=== PATIENT | male | born 1995 | race Caucasian/White ===

== ENCOUNTER 2023-04-07 21:50 | Emergency (ER) | payer SELFPAY ==
[2023-04-07 21:56] VITALS: BP 115/74; PULSE 82; RESP 16; TEMP 36.8; O2SAT 97; BMI 21.7
== END 2023-04-07 23:50 | disposition left against medical advice (07) ==
PROVIDERS: Emergency Provider Emergency Medicine
CPT/HCPCS: 99281

== ENCOUNTER 2023-05-23 20:43 | Emergency (ER) | payer SELFPAY ==
[2023-05-23 20:47] VITALS: BP 118/72; PULSE 57; RESP 16; TEMP 36.6; O2SAT 97; BMI 19.6
--- NOTE | 2023-05-23 20:57 | ED.DENTAL ---
HPI - Dental/Oral General Chief complaint: Dental/Oral Stated complaint: Tooth trouble Time Seen by Provider: 05/23/23 20:52 Source: patient Mode of arrival: Ambulatory History of Present Illness HPI Narrative: 27-year-old male daily smoker presents with a chief complaint of dental pain in the right lower molar. He states he broke his tooth about 1 month ago in has had increasing pain. He denies any facial swelling but does state that a day or 2 ago he had some adjacent gum swelling and when he firmly pressed it he was able to express yellowish, foul-smelling bitter tasting liquid. He denies fever chills nor any trouble swallowing. He has been using Orajel with minimal relief. He is approached a few local dentist but they do not accept his insurance Related Data Previous Rx's Medication Instructions Recorded ketorolac 10 mg tablet 10 mg PO Q6H PRN pain #14 tabs 05/23/23 penicillin V potassium 500 mg 500 mg PO Q6H 10 days #40 tabs 05/23/23 tablet Allergies Allergy/AdvReac Type Severity Reaction Status Date / Time No Known Drug Allergies Allergy Verified 05/23/23 21:06 Review of Systems Review of Systems Narrative: GENERAL: Denies chills, fatigue, malaise, fever, sweats. HEENT: See HPI RESPIRATORY: Denies dyspnea, cough, wheezing, hemoptysis, sputum. CARDIOVASCULAR: Denies chest pain, palpitations, orthopnea, edema, GASTROINTESTINAL: Denies nausea, vomiting, abdominal pain, diarrhea, constipation, melena. : Denies dysuria, frequency, incontinence, hematuria, urinary retention. MUSCULOSKELETAL: denies weakness, joint pain, or bony pain SKIN: Denies rash, skin lesions, or other NEUROLOGIC: Denies weakness, headache, numbness, change in speech, confusion, seizures, incoordination. PSYCHIATRIC: No concerning psychosocial issues. 12 point review of systems is negative except for those stated above Patient History Social History Smoking Status: Current every day smoker Smoking Status: Current every day smoker tobacco type: cigarettes and e-cigarettes alcohol intake frequency: 0-2 drinks per day Substance Use Type: marijuana Exam Narrative Exam Narrative: GEN: AOx3 and in mild distress EYES: Pupils are equal, round, and reactive to light and accommodation. Extraoccular muscles are intact bilaterally. There is no subconjunctival hemorrhage or exudate. ENT: Poor dentition throughout, most notably apparently an old fracture of tooth number 32 without adjacent swelling, no drainage, no facial swelling, airway patent and mucous membranes moist CHEST: Lungs are clear to auscultation bilaterally and free of wheezes, rales, or rhonchi. Heart rate is regular rhythm, there are no murmurs, clicks, rubs, or gallops. There is no chest wall tenderness. ABD: Abdomen is soft and nontender. There is no guarding or rebound. Bowel sounds are normal in all 4 quadrants. There is no mass or organomegaly. EXT: Full painless ROM of all extremities with no loss of sensation or strength. SKIN: Warm, pink, and dry. No erythema or rash Initial Vital Signs Initial Vital Signs: Vital Signs Temperature 98 F 05/23/23 20:47 Pulse Rate 57 L 05/23/23 20:47 Respiratory Rate 16 05/23/23 20:47 Blood Pressure 118/72 05/23/23 20:47 Pulse Oximetry 97 05/23/23 20:47 Oxygen Delivery Method Room Air 05/23/23 20:47 Procedures Nerve Block Nerve Block 1: Time out performed: Yes Local Anesthetic: lidocaine 2% and with epi Amount of anesthesia used (mL): 2 Intraoral Nerve Block: inferior alveolar Procedure Successful: Yes Patient Tolerated Procedure: Well Complications: none Course Orders Ordered: Discontinued Medications Penicillin V Potassium (Penicillin 250 Mg Tab Prepack) 1 bottle MISC SEEINSTR ONE Stop: 05/23/23 21:06 Last Admin: 05/23/23 21:18 Dose: 1 bottle Documented By: TOBI Vital Signs Vital signs: Vital Signs - 8 hr 05/23/23 20:47 Temperature 98 F Pulse Rate 57 L Respiratory Rate 16 Blood Pressure 118/72 Pulse Oximetry 97 Oxygen Delivery Method Room Air MDM - Dental/Oral MDM Narrative Medical decision making narrative: [27] year old patient presents with increasing dental pain in recent swelling with purulent drainage Multiple etiologies for patient's symptoms considered including, but not limited to: [Dental jona versus fracture versus abscess versus other] Prior Charts reviewed in our EMR Primary Historian: patient Patient's history and physical exam are reassuring, no systemic complaints, no current facial swelling, patient did report recent purulent drainage hence decision to use antibiotics. Dental block performed, patient pain well controlled. Airway patent, tolerating orals, encouraged to follow closely with his insurance company to see which dentist accept his insurance, contact information for Dr. Gaines as an other point of contact Patient's symptoms improved over duration of stay with above-stated therapies. Findings and discharge diagnosis discussed with patient/family followed by verbalization of understanding Return precautions discussed with patient/family whom verbalize understanding of diagnosis and plan Discharge Plan Departure Patient Disposition: Home Clinical Impression: Abscess, dental Instructions: Tooth Abscess Activity Restrictions/Additional Instructions: *You have been diagnosed with [dental pain with probable abscess] *What to do: *Please continue to take your regular medications as directed. [ x] New medication prescriptions sent to your pharmacy: [facility] ] [ ] New medication written as a paper prescription [ ] No new medications given *Please follow up with your primary dental care provider in 2-3 days, call for an appointment. Let them know you were seen in the Emergency Department and that we ask that you be seen in follow up. As we discussed I have included the contact information for a local dentist that is associated with the hospital, you could call them for follow-up or assistance with referral as well. *Return to Emergency Department if you should have any new, worsening or concerning symptoms, such as [fever greater than 101 F, shaking chills, worsening pain, persistent vomiting or other bothersome symptoms] Prescriptions: New penicillin V potassium 500 mg tablet 500 mg PO Q6H 10 Days Qty: 40 0RF ketorolac 10 mg tablet 10 mg PO Q6H PRN (Reason: pain) Qty: 14 0RF Referrals: Juni Gaines DMD [Physician] - Stand Alone Forms: Patient Portal/API
[2023-05-23] MEDS: PENICILLIN 250 MG TAB PREPACK 1 BOTTLE MISC (21:18)
[2023-05-23] MEDS: LIDOCAINE 2% W/EPI INJ 20 ML (21:20)
== END 2023-05-23 21:22 | disposition home or self-care (01) ==
PROVIDERS: Emergency Provider Emergency Medicine
DX: K04.7 Periapical abscess without sinus (principal)
CPT/HCPCS: 64450; 99281; 99283

== ENCOUNTER 2023-06-05 19:33 | Emergency (ER) | payer OTHER, SELFPAY ==
[2023-06-05 19:36] VITALS: BP 138/70; PULSE 74; RESP 20; TEMP 36.8; O2SAT 99; BMI 19.6
--- NOTE | 2023-06-05 20:41 | DI.RAD.S_ITS ---
PROCEDURE: XR HIP W PEL IF DONE RT 2V INDICATIONS: Bruising and pain with walking over iliac crest TECHNIQUE: AP pelvis with lateral view(s) of the right hip(s). COMPARISON: None. FINDINGS: Bones: No fractures or dislocations. Pelvic ring appears intact. No suspicious bony lesions. Soft tissues: The visualized bowel gas pattern is normal. No suspicious soft tissue calcifications. IMPRESSION: No acute right hip fracture or dislocation. No evidence of avascular necrosis. Dictated by: David Allen M.D. on 06/05/2023 at 21:07 Approved by: David Allen M.D. on 06/05/2023 at 21:08
--- NOTE | 2023-06-05 20:42 | ED_ITS ---
HPI - Back Pain/Injury General Chief Complaint: Back Pain/Injury Stated Complaint: Painful bruise right torso Time Seen by Provider: 06/05/23 20:38 Source: patient Mode of arrival: Ambulatory History of Present Illness HPI Narrative: Patient is a 19-year-old male who is here for evaluation of a bruise on his right lower quadrant just above his right hip. He states it has actually been there for the past couple days but has become darker. He states he does not caused it. He denies any specific trauma. It is painful to touch and it is painful for him to stand on his right leg after long periods of time. No other bruising Related Data Previous Rx's Medication Instructions Recorded ketorolac 10 mg tablet 10 mg PO Q6H PRN pain #14 tabs 05/23/23 Allergies Allergy/AdvReac Type Severity Reaction Status Date / Time No Known Drug Allergies Allergy Verified 06/05/23 19:43 Review of Systems Constitutional Constitutional: Reports system reviewed and no additional complaints, except as documented Musculoskeletal Musculoskeletal: Reports system reviewed and no additional complaints, except as documented Integumentary/Breasts Skin/Breast: Reports system reviewed and no additional complaints, except as documented Patient History Social History Smoking Status: Former smoker Smoking Status: Former smoker tobacco type: cigarettes and e-cigarettes alcohol intake frequency: other Substance Use Type: marijuana Exam Initial Vital Signs Initial Vital Signs: Vital Signs Temperature 98.2 F 06/05/23 19:36 Pulse Rate 74 06/05/23 19:36 Respiratory Rate 20 06/05/23 19:36 Blood Pressure 138/70 06/05/23 19:36 Pulse Oximetry 99 06/05/23 19:36 Oxygen Delivery Method Room Air 06/05/23 19:36 [facility] Head: normal to inspection and normocephalic Skin Other: A 3 x 2 cm area of bruising in the anterior portion right along the iliac crest. No ulcerations. No vesicles. No pustules. Neuro General: patient alert and patient awake Extrem Other: Patient can flex and extend at the right hip. Course Orders Ordered: ED Orders 06/05/23 20:41 XR hip w pel if done RT 2V Stat Vital Signs Vital signs: Vital Signs - 8 hr 06/05/23 19:36 06/05/23 21:32 Temperature 98.2 F Pulse Rate 74 54 L Respiratory Rate 20 16 Blood Pressure 138/70 127/76 Pulse Oximetry 99 99 Oxygen Delivery Method Room Air Room Air MDM - Back Pain/Injury Imaging Data Extremity x-ray #1: Radiologist's Impression: PROCEDURE: XR HIP W PEL IF DONE RT 2V INDICATIONS: Bruising and pain with walking over iliac crest TECHNIQUE: AP pelvis with lateral view(s) of the right hip(s). COMPARISON: None. FINDINGS: Bones: No fractures or dislocations. Pelvic ring appears intact. No suspicious bony lesions. Soft tissues: The visualized bowel gas pattern is normal. No suspicious soft tissue calcifications. IMPRESSION: No acute right hip fracture or dislocation. No evidence of avascular necrosis. [facility] Narrative Medical decision making narrative: X-rays negative. This does appear to be a bruise over the right iliac crest from an unknown reason. There is no indication of any abscess or infection. I did discuss this with the patient. Conservative measures for now. He was given return precautions. He expressed understanding and agreement. Discharge Plan Departure Patient Disposition: Home Clinical Impression: Contusion of hip, right Instructions: Bruises (Alternative Therapy) Activity Restrictions/Additional Instructions: No fractures noted on the x-ray. The bruise does not give the parents of any sort of infection. You can walk on your right leg as tolerated. Tylenol ibuprofen as needed as well. Return to the emergency for new symptoms. Prescriptions: No Action ketorolac 10 mg tablet 10 mg PO Q6H PRN (Reason: pain) Qty: 14 0RF Stand Alone Forms: Patient Portal/API
[2023-06-05 21:32] VITALS: BP 127/76; PULSE 54; RESP 16; O2SAT 99
== END 2023-06-05 21:32 | disposition home or self-care (01) ==
PROVIDERS: Emergency Provider Emergency Medicine
DX: S70.01XA Contusion of right hip, initial encounter (principal); X58.XXXA Exposure to other specified factors, initial encounter; Y93.9 Activity, unspecified
CPT/HCPCS: 73502; 99281; 99283